=== PATIENT | female | born 1980 | race Asian ===

== ENCOUNTER 2017-05-10 08:34 | Day surgery (SDC) | payer MEDICARE, MEDICAID ==
[2017-05-09 11:01] LABS: HEMATOCRIT 45.3 % (34.6-47.8); WHITE BLOOD COUNT 5.9 x10^3/uL (3.4-10)
[2017-05-09 13:02] VITALS: BP 142/86
[~2017-05-10] VITALS: Ht 167.6 cm; Wt 64.0 kg
[~2017-05-10 08:34] MED LIST: MEDR150V INJ
[2017-05-10] MEDS ORDERED: LACTATED RINGERS 1,000 ML IV SCH (09:21)
[2017-05-10 09:22] VITALS: BP 142/86
[2017-05-10] MEDS ORDERED: FENTANYL PF 100 MCG/2ML ONE (09:40)
[2017-05-10] MEDS ORDERED: BUPIVACAINE/PF 0.25% ONE (09:43)
[2017-05-10] MEDS ORDERED: LABETALOL 5MG/ML, 20ML IV PRN (10:00)
[2017-05-10] MEDS ORDERED: ONDANSETRON 2MG/ML, 2ML IVPush PRN (10:00)
[2017-05-10] MEDS ORDERED: FENTANYL PF 100 MCG/2ML IV PRN (10:00)
[2017-05-10] MEDS ORDERED: OXYcodone 5 MG/5 ML ORAL.SOL UDC PO PRN (10:00)
[2017-05-10] MEDS ORDERED: MIDAZOLAM 1 MG/ML, 2ML IV PRN (10:00)
[2017-05-10] MEDS ORDERED: hydrALAzine 20 MG/ML, 1ML IV PRN (10:00)
[2017-05-10] MEDS ORDERED: MEPERIDINE/PF 25MG/0.5ML IVPush PRN (10:00)
[2017-05-10] MEDS ORDERED: HYDROmorphone 1 MG/ML, 1ML IV PRN (10:00)
[2017-05-10] MEDS ORDERED: PROMETHAZINE 25 MG/ML, 1ML IV PRN (10:00)
[2017-05-10] MEDS ORDERED: ONDANSETRON 2MG/ML, 2ML ONE (10:10)
[2017-05-10] MEDS ORDERED: PROPOFOL 10 MG/ML, 20ML ONE (10:10)
[2017-05-10] MEDS ORDERED: DEXAMETHASONE 4 MG/ML, 5ML ONE (10:10)
[2017-05-10] MEDS ORDERED: METOCLOPRAMIDE 5 MG/ML, 2ML ONE (10:10)
[2017-05-10] MEDS ORDERED: KETOROLAC 30 MG/1 ML ONE (10:10)
[2017-05-10] MEDS ORDERED: HYDROmorphone 1 MG/ML, 1ML ONE (10:24)
[2017-05-10] MEDS ORDERED: SILVER NITRATE STICK TP ONE (10:36)
[2017-05-10] MEDS ORDERED: OXYcodone 5 MG/5 ML ORAL.SOL UDC ONE (11:13)
== END 2017-05-10 13:30 | disposition home or self-care (01) ==
LOC: OUT 08:34
PROVIDERS: ATTEND Obstetrics & Gynecology
DX: N84.0 Polyp of corpus uteri (principal); F17.210 Nicotine dependence, cigarettes, uncomplicated
CPT/HCPCS: 36415; 58558; 71020; 84703; 85025; 88305; J1100; J1170; J1885; J2405; J2704; J2765; J3010; J3490; J7120

== ENCOUNTER 2020-08-19 12:20 | Emergency (ER) | payer MEDICARE, MEDICAID ==
[~2020-08-19] VITALS: Ht 167.6 cm; Wt 69.0 kg
--- NOTE | 2020-08-19 12:36 | NUR ---
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
[2020-08-19 12:59] LABS: BASOPHILS % (AUTO) 0 % (0-1); EOSINOPHILS % (AUTO) 1 % (1-7); LYMPHOCYTES % (AUTO) 15 % (22-44); MEAN CORPUSCULAR HEMOGLOBIN 32.6 pg (27.0-34.8); MEAN CORPUSCULAR HGB CONC 34.3 g/dL (32.4-35.8); MEAN PLATELET VOLUME 7.3 fL (7.4-10.4); MONOCYTES % (AUTO) 6 % (2-9); NEUTROPHILS % (AUTO) 78 % (42-75); PLATELET COUNT 339 x10^3/uL (130-400); RED BLOOD COUNT 4.43 x10^6/uL (3.82-5.3); RED CELL DISTRIBUTION WIDTH 12.8 % (9.6-15.2)
[2020-08-19 13:01] LABS: MD NO
[2020-08-19 13:28] LABS: ALANINE AMINOTRANSFERASE 22 U/L (12-78); ALBUMIN 3.9 g/dL (3.4-5.0); ALKALINE PHOSPHATASE 64 U/L (45-117); ANION GAP 6 mmol/L (5-15); BILIRUBIN,TOTAL 0.8 mg/dL (0.2-1.0); CALCIUM 8.9 mg/dL (8.5-10.1); CHLORIDE 107 mmol/L (98-107); CREATININE 0.89 mg/dL (0.55-1.02); TOTAL PROTEIN 7.6 g/dL (6.4-8.2)
--- NOTE | 2020-08-19 16:06 | NUR ---
PT HAS CO VOMITING X1 W ABDOMINAL PAIN. STARTED TODAY. DENIES CP OR SOB.
[2020-08-19] MEDS ORDERED: POTASSIUM CHLORIDE 20 MEQ PACKET ONE (16:56)
[2020-08-19] MEDS ORDERED: POTASSIUM CHLORIDE 20 MEQ PACKET PO ONE (17:00)
--- NOTE | 2020-08-19 17:27 | NUR ---
Patient/Caregiver given discharge instructions and they have confirmed that they understand the instructions. Patient ambulatory with steady gait.
[2020-08-19 17:28] VITALS: BP 135/83
== END 2020-08-19 17:29 ==
LOC: ED 13:41
DX: E87.6 Hypokalemia (principal); R11.2 Nausea with vomiting, unspecified; F17.200 Nicotine dependence, unspecified, uncomplicated
CPT/HCPCS: 36415; 80053; 84703; 85025; 99283

== ENCOUNTER 2020-09-01 18:08 | Emergency (ER) | payer MEDICARE, MEDICAID ==
[~2020-09-01] VITALS: Ht 167.6 cm; Wt 69.6 kg
[2020-09-01 19:06] LABS: BASOPHILS % (AUTO) 1 % (0-1); EOSINOPHILS % (AUTO) 3 % (1-7); LYMPHOCYTES % (AUTO) 27 % (22-44); MEAN CORPUSCULAR HEMOGLOBIN 32.2 pg (27.0-34.8); MEAN PLATELET VOLUME 7.5 fL (7.4-10.4); MONOCYTES % (AUTO) 7 % (2-9); NEUTROPHILS % (AUTO) 63 % (42-75); PLATELET COUNT 312 x10^3/uL (130-400); RED BLOOD COUNT 4.76 x10^6/uL (3.82-5.3)
[2020-09-01 19:14] LABS: ALANINE AMINOTRANSFERASE 21 U/L (12-78); ALBUMIN 3.8 g/dL (3.4-5.0); ANION GAP 7 mmol/L (5-15); CALCIUM 8.9 mg/dL (8.5-10.1); CHLORIDE 106 mmol/L (98-107); CREATININE 0.93 mg/dL (0.55-1.02); MD NO
[2020-09-01 19:19] LABS: ALKALINE PHOSPHATASE 65 U/L (45-117); BILIRUBIN,TOTAL 0.3 mg/dL (0.2-1.0); TOTAL PROTEIN 7.7 g/dL (6.4-8.2)
--- NOTE | 2020-09-01 20:20 | NUR ---
Note elizabeth in EDM - 09/01/20 at 2020 by [email or web address] PT VSS. PAIN IMPROVED WITH MEDICATIONS. PT AMBULATORY. PT TBDC.
[2020-09-01] MEDS ORDERED: ONDANSETRON ODT 4 MG ONE (20:53)
[2020-09-01] MEDS ORDERED: MAALOX/HYOSCYAMINE/LIDOCAINE 45 ML BTL ONE (20:53)
[2020-09-01] MEDS ORDERED: POTASSIUM CHLORIDE 20 MEQ TAB.ER.PRT ONE (20:53)
[2020-09-01] MEDS ORDERED: ONDANSETRON ODT 4 MG PO ONE (21:00)
[2020-09-01] MEDS ORDERED: MAALOX/HYOSCYAMINE/LIDOCAINE 45 ML BTL PO ONE (21:00)
[2020-09-01] MEDS ORDERED: POTASSIUM CHLORIDE 20 MEQ TAB.ER.PRT PO ONE (21:00)
[2020-09-01 21:21] VITALS: BP 170/79
== END 2020-09-01 22:09 | disposition home or self-care (01) ==
LOC: ED 20:41
DX: R13.10 Dysphagia, unspecified (principal); R10.10 Upper abdominal pain, unspecified; R11.0 Nausea; F17.200 Nicotine dependence, unspecified, uncomplicated; K59.00 Constipation, unspecified; E87.6 Hypokalemia; R94.31 Abnormal electrocardiogram [ECG] [EKG]
CPT/HCPCS: 36415; 71045; 74021; 80053; 83690; 84703; 85025; 93005; 99285; Q0162